=== PATIENT | female | born 1960 | race Caucasian/White ===

== ENCOUNTER → 2017-09-07 | Outpatient (CLI) | payer BC ==
--- NOTE | 2017-09-10 10:33 | MM ---
Reason for exam: screening (asymptomatic). Last mammogram was performed 1 year ago. History: Patient is postmenopausal. Physical Findings: A clinical breast exam by your physician is recommended on an annual basis and results should be correlated with mammographic findings. MG Screening Mammo w CAD Bilateral CC and MLO view(s) were taken. Prior study comparison: September 01, 2016, bilateral MG screening mammo w CAD. August 27, 2015, bilateral MG screening mammo w CAD. The breast tissue is heterogeneously dense. This may lower the sensitivity of mammography. No suspicious abnormality. No significant changes when compared with prior studies. ASSESSMENT: Negative, BI-RAD 1 RECOMMENDATION: Routine screening mammogram of both breasts in 1 year.
== END | disposition home or self-care (01) ==
LOC: RADMAMWWP 07:05
PROVIDERS: ATTEND Family Medicine
DX: Z12.31 Encounter for screening mammogram for malignant neoplasm of breast (principal)

== ENCOUNTER → 2018-09-27 | Outpatient (CLI) | payer BC ==
--- NOTE | 2018-09-30 12:15 | MM ---
Reason for exam: screening (asymptomatic). Last mammogram was performed 1 year and 1 month ago. History: Patient is postmenopausal. Physical Findings: A clinical breast exam by your physician is recommended on an annual basis and results should be correlated with mammographic findings. MG Screening Mammo w CAD Bilateral CC and MLO view(s) were taken. Prior study comparison: September 07, 2017, bilateral MG screening mammo w CAD. September 01, 2016, bilateral MG screening mammo w CAD. The breast tissue is heterogeneously dense. This may lower the sensitivity of mammography. Benign appearing bilateral calcifications. No significant changes when compared with prior studies. ASSESSMENT: Benign, BI-RAD 2 RECOMMENDATION: Routine screening mammogram of both breasts in 1 year.
== END ==
LOC: RADMAMWWP 06:57
PROVIDERS: ATTEND Family Medicine
DX: Z12.31 Encounter for screening mammogram for malignant neoplasm of breast (principal)
CPT/HCPCS: 77067

== ENCOUNTER → 2020-06-15 | Outpatient (CLI) | payer BC ==
--- NOTE | 2020-06-15 15:47 | BD ---
EXAMINATION TYPE: Axial Bone Density DATE OF EXAM: 06/15/2020 COMPARISON: NONE CLINICAL HISTORY: 59-year-old female postmenopausal screening Height: 5 FT 1 IN Weight: 123 FRAX RISK QUESTIONS: Alcohol (3 or more units per day): NO Family History (Parent hip fracture): NO Glucocorticoids (More than 3mos): NO (Ex: prednisone, prednisolone, methylprednisolone, dexamethasone, and hydrocortisone). History of Fracture in Adulthood: YES Secondary Osteoporosis: 1. Type 1 Diabetes: NO 2. Hyperthyroidism: NO 3. Menopause before 45: NO 4. Malnutrition: NO 5. Chronic liver disease: NO Rheumatoid Arthritis: NO Current Tobacco Use: YES RISK FACTORS HISTORY OF: Family History of Osteoporosis: NO Active: YES Diet low in dairy products/other sources of calcium: NO Postmenopausal woman: AGE 48 MEDICATIONS: Additional Medications: INSULIN, AMERSOL, SIMVASTATIN, LISINOPRIL Additional History: EXAM MEASUREMENTS: Bone mineral densitometry was performed using the [employer] System. Bone mineral density as measured about the Lumbar spine is: ----- L1-L4(G/cm2): 0.912 T Score Values are as follows: ----- L2: -2.9 ----- L3: -2.2 ----- L4: -1.6 ----- L1-L4: -2.2 Bone mineral density has: DECREASED -7.7 % since study of: 2015 Bone mineral density about the R hip (g/cm2): 0.647 Bone mineral density about the L hip (g/cm2): 0.811 T Score values are as follows: -----R Neck: -2.8 -----L Neck: -1.6 -----R Total: -3.4 -----L Total: -1.7 Bone mineral density has: DECREASED -20.8 % since study of: 2015 IMPRESSION: Osteoporosis (T Score less than -2.5). There is increased fracture risk and therapy is usually indicated based on age. Re-Screen 1-2 years. NOTE: T-SCORE=SD OF THE YOUNG ADULT MEAN.
--- NOTE | 2020-06-16 11:03 | MM ---
Reason for exam: screening (asymptomatic). Last mammogram was performed 1 year and 9 months ago. History: Patient is postmenopausal. Physical Findings: A clinical breast exam by your physician is recommended on an annual basis and results should be correlated with mammographic findings. MG Screening Mammo w CAD Bilateral CC and MLO view(s) were taken. Prior study comparison: September 27, 2018, bilateral MG screening mammo w CAD. September 07, 2017, bilateral MG screening mammo w CAD. The breast tissue is heterogeneously dense. This may lower the sensitivity of mammography. Finding: There are typically benign round calcifications in the upper outer quadrant of the left breast. There is no discrete abnormality. ASSESSMENT: Negative, BI-RAD 1 RECOMMENDATION: Routine screening mammogram of both breasts in 1 year.
== END | disposition home or self-care (01) ==
LOC: RADMAMWWP 07:59
PROVIDERS: ATTEND Family Medicine
DX: Z12.31 Encounter for screening mammogram for malignant neoplasm of breast (principal); Z13.820 Encounter for screening for osteoporosis; M81.0 Age-related osteoporosis without current pathological fracture
CPT/HCPCS: 77067; 77080

== ENCOUNTER → 2021-09-30 | Outpatient (CLI) | payer BC ==
--- NOTE | 2021-10-03 11:46 | MM ---
Reason for exam: screening (asymptomatic). Last mammogram was performed 1 year and 3 months ago. History: Patient is postmenopausal. Took hormonal contraceptives for 1 year. Physical Findings: A clinical breast exam by your physician is recommended on an annual basis and results should be correlated with mammographic findings. MG Screening Mammo w CAD Bilateral CC and MLO view(s) were taken. Prior study comparison: June 15, 2020, bilateral MG screening mammo w CAD. September 27, 2018, bilateral MG screening mammo w CAD. The breast tissue is heterogeneously dense. This may lower the sensitivity of mammography. There is no discrete abnormality. ASSESSMENT: Negative, BI-RAD 1 RECOMMENDATION: Routine screening mammogram of both breasts in 1 year.
== END | disposition home or self-care (01) ==
LOC: RADMAMWWP 07:30
PROVIDERS: ATTEND Family Medicine
DX: Z12.31 Encounter for screening mammogram for malignant neoplasm of breast (principal)
CPT/HCPCS: 77067

== ENCOUNTER 2022-01-17 08:13 | Day surgery (SDC) | payer BC ==
[2022-01-13 09:08] VITALS: BMI 23.8
[~2022-01-17 08:13] MED LIST: LIDOCAINE 1% (10MG/ML) FOR IV START INTRADERMA PRN
[2022-01-17 08:33] VITALS: RESP 16; TEMP 97.7
[2022-01-17 08:42] LABS: Glucose,Whole Blood 83 mg/dL (75-99)
[2022-01-17] MEDS: LACTATED RINGERS 1,000 ML IV SCH ×2 (08:42→08:55)
[2022-01-17] MEDS ORDERED: PROPOFOL 10 MG/ML 20 ML VIAL IV ONE (08:57)
--- NOTE | 2022-01-17 09:03 | P.GSHP ---
History of Present Illness H&P Date: 01/17/22 Chief Complaint: Colon cancer screening 61-year-old female here today for colonoscopy. Last colonoscopy 6 years ago. Patient with history of sigmoid colon polyp possible adenoma. No bowel complaints. No family history of colon cancer. Past Medical History Past Medical History: Diabetes Mellitus, Osteoarthritis (OA) Additional Past Medical History / Comment(s): STATES LISINOPRIL FOR KIDNEY PROTECTION. History of Any Multi-Drug Resistant Organisms: None Reported Past Surgical History: Hernia Repair, Orthopedic Surgery, Tubal Ligation Additional Past Surgical History / Comment(s): SURGERY FOR CRUSHED RIGHT LEG BELOW KNEE. Past Anesthesia/Blood Transfusion Reactions: No Reported Reaction Past Psychological History: No Psychological Hx Reported Smoking Status: Current every day smoker Past Alcohol Use History: Occasional Additional Past Alcohol Use History / Comment(s): SMOKES 1 PPD ., STARTED SMOKING AGE 17. Past Drug Use History: None Reported - Past Family History Father Sister(s) Family Medical History: Cancer Medications and Allergies Home Medications Medication Instructions Recorded Confirmed Type Simvastatin [Zocor] 20 mg PO HS 08/26/15 01/17/22 History lisinopriL [Zestril] 2.5 tab PO HS 08/26/15 01/17/22 History Acetaminophen [Tylenol Extra 1,000 mg PO DIRECTED PRN 01/13/22 01/17/22 History Strength] Alendronate Sodium [Fosamax] 70 mg PO WEEKLY 01/13/22 01/17/22 History Glimepiride [Amaryl] 1 mg PO DAILY 01/13/22 01/17/22 History Insulin Detemir (Levemir) [Levemir] 15 unit SQ BID 01/13/22 01/17/22 History Multivitamins, Thera [Multivitamin 1 tab PO DAILY 01/13/22 01/13/22 History (formulary)] Naproxen Sodium [Aleve] 220 mg PO DIRECTED PRN 01/13/22 01/13/22 History Trulicity (Unknown Dose) 1 dose SQ WEEKLY 01/13/22 01/17/22 History Allergies Allergy/AdvReac Type Severity Reaction Status Date / Time Penicillins Allergy Rash/Hives Verified 01/17/22 08:29 Surgical - Exam Vital Signs Temp Pulse Resp BP Pulse Ox 97.7 F 77 16 133/76 98 01/17/22 08:31 01/17/22 08:31 01/17/22 08:31 01/17/22 08:31 01/17/22 08:31 Physical exam: General: Well-developed, well-nourished HEENT: Normocephalic, sclerae nonicteric Abdomen: Nontender, nondistended Extremities: No edema Neuro: Alert and oriented Assessment and Plan (1) Colon cancer screening Narrative/Plan: Will proceed with colonoscopy at this time Current Visit: Yes Status: Acute Code(s): Z12.11 - ENCOUNTER FOR SCREENING FOR MALIGNANT NEOPLASM OF COLON SNOMED Code(s): 391083835
--- NOTE | 2022-01-17 09:22 | P.PCN ---
Date of Procedure: 01/17/22 Procedure(s) Performed: PREOPERATIVE DIAGNOSIS: Colon cancer screening, history of polyps POSTOPERATIVE DIAGNOSIS: Small sigmoid colon polyp PROCEDURE: Colonoscopy with biopsy ANESTHESIA: MAC SURGEON: Srinivas Dacosta M.D. SPECIMENS: Sigmoid colon polyp ENDOSCOPIC PROCEDURE: The patient was placed on the endoscopy table in the left decubitus position. The Olympus colonoscope was inserted into the anus and passed under direct visualization to the base of the cecum. The appendiceal orifice was visualized. From that point the scope was slowly withdrawn inspecting all surfaces carefully. There were no neoplastic inflammatory or polypoid lesions throughout the cecum, ascending, transverse, and descending colon. In the sigmoid colon there was a small polyp removed using the cold biopsy forceps. The remainder of the sigmoid and rectum was normal. There was no visible diverticulosis. Digital rectal examination was normal. The patient was taken to the recovery room in stable condition per anesthesia guidelines. RECOMMENDATIONS: Await biopsy results. Anticipate follow-up colonoscopy 5-7 years.
[2022-01-17 10:08] VITALS: BP 122/78; PULSE 72
== END 2022-01-17 10:16 | disposition home or self-care (01) ==
LOC: ORWHC2ENDO 08:13
PROVIDERS: ATTEND Surgery
DX: Z12.11 Encounter for screening for malignant neoplasm of colon (principal); Z86.010 Personal history of colon polyps; K63.5 Polyp of colon; E11.9 Type 2 diabetes mellitus without complications; M19.90 Unspecified osteoarthritis, unspecified site; E78.5 Hyperlipidemia, unspecified; Z98.890 Other specified postprocedural states; F17.210 Nicotine dependence, cigarettes, uncomplicated; Z80.9 Family history of malignant neoplasm, unspecified; Z79.899 Other long term (current) drug therapy; Z97.2 Presence of dental prosthetic device (complete) (partial); Z98.51 Tubal ligation status; Z79.83 Long term (current) use of bisphosphonates; Z79.4 Long term (current) use of insulin; Z88.0 Allergy status to penicillin
CPT/HCPCS: 88305; 45380; J2704

== ENCOUNTER → 2022-07-10 | Outpatient (CLI) | payer BC ==
--- NOTE | 2022-07-10 20:10 | BD ---
EXAMINATION TYPE: Axial Bone Density DATE OF EXAM: 07/10/2022 CLINICAL HISTORY: 61 year old Female. ICD-10 CODE: M81.0 OSTEOPOROSIS, Z87.310 HISTORY OF OSTEOPORO SIS Height: 61 Weight: 126.7 FRAX RISK QUESTIONS: Alcohol (3 or more units per day): no Family History (Parent hip fracture): no Glucocorticoids (More than 3mos): no (Ex: prednisone, prednisolone, methylprednisolone, dexamethasone, and hydrocortisone). History of Fracture in Adulthood: yes Secondary Osteoporosis: 1. Type 1 Diabetes: no 2. Hyperthyroidism: no 3. Menopause before 45: no 4. Malnutrition: no 5. Chronic liver disease: no Rheumatoid Arthritis: no Current Tobacco Use: yes RISK FACTORS HISTORY OF: Surgery to Spine/Hip(right/left)/Wrist (right/left): no Family History of Osteoporosis: no Active: no Diet low in dairy products/other sources of calcium: no Postmenopausal woman: yes Lost more than 2 inches in height since high school: no MEDICATIONS: diabetic meds Osteoporosis Medications: alendronate How Lon years Additional History: EXAM MEASUREMENTS: Bone mineral densitometry was performed using the [employer] System. Bone mineral density as measured about the Lumbar spine is: ----- L1-L4(G/cm2): 0.956 T Score Values are as follows: ----- L1: -2.3 ----- L2: -2.9 ----- L3: -1.6 ----- L4: -0.9 ----- L1-L4: -1.9 Bone mineral density has: decreased -3.3 % since study of: 09.01.2016 Bone mineral density about the R hip (g/cm2): 0.705 Bone mineral density about the L hip (g/cm2): 0.813 T Score values are as follows: -----R Neck: -2.4 -----L Neck: -1.6 -----R Total: -2.8 -----L Total: -1.8 Bone mineral density has: decreased -17.5 % since study of: 09.01.2016 FRAX%s: The graph provided illustrates a 20.6% chance for a major osteoporotic fx and a 6.3% chance f or the hips probability for fx in 10 years time. IMPRESSION: Osteoporosis (T Score less than -2.5). There is increased fracture risk and therapy is usually indicated based on age. Re-Screen 1-2 years. NOTE: T-SCORE=SD OF THE YOUNG ADULT MEAN.
== END | disposition home or self-care (01) ==
LOC: RADBDWWP 09:10
PROVIDERS: ATTEND Family Medicine
DX: M81.0 Age-related osteoporosis without current pathological fracture (principal); Z87.310 Personal history of (healed) osteoporosis fracture
CPT/HCPCS: 77080

== ENCOUNTER → 2022-10-27 | Outpatient (CLI) | payer BC ==
--- NOTE | 2022-10-30 08:42 | MM ---
Reason for Exam: Screening (asymptomatic). Last mammogram was performed 1 year(s) and 1 month(s) ago. Patient History: Menarche at age 13. First Full-Term at age 19. Postmenopausal. Patient used Hormonal Contraceptives for 1 year. Risk Values: Marnie 5 year model risk: 1.1%. NCI Lifetime model risk: 5.2%. Prior Study Comparison: 09/01/2016 Bilateral Screening Mammogram, [facility]. 09/07/2017 Bilateral Screening Mammogram, [facility]. 09/27/2018 Bilateral Screening Mammogram, [facility]. 06/15/2020 Bilateral Screening Mammogram, [facility]. 09/30/2021 Bilateral Screening Mammogram, [facility]. Tissue Density: The breast tissue is heterogeneously dense. This may lower the sensitivity of mammography. Findings: Analyzed By CAD. There is no suspicious group of microcalcifications or new suspicious mass in either breast. Overall Assessment: Negative, BI-RAD 1 Management: Screening Mammogram of both breasts in 1 year. A clinical breast exam by your physician is recommended on an annual basis and results should be correlated with mammographic findings. Electronically signed and approved by: Sesar Miguel M.D. Radiologis
== END | disposition home or self-care (01) ==
LOC: RADMAMWWP 10:04
PROVIDERS: ATTEND Family Medicine
DX: Z12.31 Encounter for screening mammogram for malignant neoplasm of breast (principal); Z78.0 Asymptomatic menopausal state
CPT/HCPCS: 77063; 77067

== ENCOUNTER → 2022-10-27 | Outpatient (CLI) | payer BC ==
--- NOTE | 2022-10-27 12:49 | XR ---
EXAMINATION TYPE: XR thoraco lumbar junction DATE OF EXAM: 10/27/2022 COMPARISON: NONE HISTORY: 61-year-old female M81.0 age related osteoporosis TECHNIQUE: 2 views FINDINGS: There is an S-shaped scoliotic curvature. Mild multilevel degenerative disc disease is present. Limit ed assessment due to patient body habitus, osteopenia, and the underlying curvature. There seems to b e some mild degenerative disc disease with endplate spondylosis upper lumbar spine. No evident verteb ral compression collapse at the thoracolumbar junction. IMPRESSION: Imaging centered at the thoracolumbar junction. S-shaped scoliosis. There appears to be mild degenera tive disc disease in the upper lumbar spine. Evaluation is limited due to osteopenia, scoliosis, and body habitus.
== END | disposition home or self-care (01) ==
LOC: RADXRMAIN 10:25
PROVIDERS: ATTEND Internal Medicine Endocrinology, Diabetes & Metabolism
DX: M81.0 Age-related osteoporosis without current pathological fracture (principal); M51.36 Other intervertebral disc degeneration, lumbar region
CPT/HCPCS: 72080

== ENCOUNTER → 2023-10-05 | Outpatient (CLI) | payer BC ==
--- NOTE | 2023-10-05 11:25 | BD ---
EXAMINATION TYPE: Axial Bone Density DATE OF EXAM: 10/05/2023 CLINICAL HISTORY: 62 years old Female. ICD-10 CODE: M81.0 OSTEOPOROSIS Height: 60.7 Weight: 109 FRAX RISK QUESTIONS: History of Fracture in Adulthood: yes Current Tobacco Use: yes RISK FACTORS HISTORY OF: hx of tib fib fx 3 yrs ago, Osteoporosis medication: yes, alendronate for about 4 yrs Postmenopausal woman: yes 50 yrs Hyperparathyroidism: no Adrenal Insufficiency: no MEDICATIONS: Osteoporosis Medications: yes, alendronate for about 4 yrs Additional Medications: diabetic, metformin, insulin, statin for cholesterol, vit d and calcium Additional History: diabetic, cholesterol,scoliosis, very thin EXAM MEASUREMENTS: Bone mineral densitometry was performed using the [employer] System. Bone mineral density as measured about the Lumbar spine is: ----- L1-L4(G/cm2): 0.757 T Score Values are as follows: ----- L1: -3.6 ----- L2: -4.2 ----- L3: -4.1 ----- L4: -2.1 ----- L1-L4: -3.5 Z Score Values are as follows: ----- L1: -1.7 ----- L2: -2.3 ----- L3: -2.2 ----- L4: -0.2 ----- L1-L4: -1.6 Bone mineral density has: Decreased -20.8% since study of: 07.10.2022 Bone mineral density about the R hip (g/cm2): 0.633 Bone mineral density about the L hip (g/cm2): 0.766 T Score values are as follows: -----R Neck: -2.2 -----L Neck: -1.9 -----R Total: -3.0 -----L Total: -1.9 Z Score values are as follows: -----R Neck: -0.5 -----L Neck: -0.2 -----R Total: -1.5 -----L Total: -0.5 Bone mineral density has: Decreased -2.5% since study of: 07.10.2022 FRAX%s: The graph provided illustrates a 17.8% chance for a major osteoporotic fx and a 5.1% chance f or the hips probability for fx in 10 years time. IMPRESSION: Osteoporosis (T Score less than -2.5). There is increased fracture risk and therapy is usually indicated based on age. Re-Screen 1-2 years. NOTE: T-SCORE=SD OF THE YOUNG ADULT MEAN.
== END | disposition home or self-care (01) ==
LOC: RADBDWWP 09:55
PROVIDERS: ATTEND Internal Medicine Endocrinology, Diabetes & Metabolism
DX: M81.0 Age-related osteoporosis without current pathological fracture (principal); M85.89 Other specified disorders of bone density and structure, multiple sites; Z78.0 Asymptomatic menopausal state
CPT/HCPCS: 77080

== ENCOUNTER → 2023-11-14 | Outpatient (CLI) | payer BC ==
--- NOTE | 2023-11-17 23:34 | MM ---
Reason for Exam: Screening (asymptomatic). Last screening mammogram was performed 12 month(s) ago. Patient History: Menarche at age 13. First Full-Term at age 19. Postmenopausal. Patient used Hormonal Contraceptives for 1 year. Risk Values: Marnie 5 year model risk: 1.1%. NCI Lifetime model risk: 5.0%. Prior Study Comparison: 06/15/2020 Bilateral Screening Mammogram, [facility]. 09/30/2021 Bilateral Screening Mammogram, [facility]. 10/27/2022 Bilateral MG 3D screening mammo w/cad, [facility]. Tissue Density: The breast tissue is heterogeneously dense. This may lower the sensitivity of mammography. Findings: Analyzed By CAD. Interval weight loss with increased breast density and decreased size of the breasts. There is no suspicious group of microcalcifications or new suspicious mass in either breast. Overall Assessment: Benign, BI-RAD 2 Management: Screening Mammogram of both breasts in 1 year. . Patient should continue monthly self-breast exams. A clinical breast exam by your physician is recommended on an annual basis. This exam should not preclude additional follow-up of suspicious palpable abnormalities. Note on Marnie scores and lifetime risk: 1. A Marnie score greater than 3% is considered moderate risk. If this is the case, consider specialist referral to assess eligibility for a risk reducing agent. 2. If overall lifetime risk for the development of breast cancer is 20% or higher, the patient may qualify for future screening with alternating mammogram and breast MRI. Electronically signed and approved by: Kassandra Cao M.D. Radiologist
--- NOTE | 2023-11-19 21:26 | CTL ---
EXAMINATION TYPE: CT Low Dose Lung DATE OF EXAM ORDERED: 11/14/2023 HISTORY: 62-year-old female Z87.891. Current smoker with 43 pack-year history. Lung cancer screening CT DLP: 46.[address] CTDI: 1.3 mGy Automated exposure control for dose reduction was used. SCREENING VISIT: Baseline COMPARISON: None TECHNIQUE: Low dose computed tomography scan was performed through the chest with coronal and sagitta l reconstructions. CT DIAGNOSTIC QUALITY: Satisfactory FINDINGS: Heart is normal size without pericardial effusion. LAD coronary artery calcifications are present. Portal and ectasia ascending aorta 3.6 cm. Conventional arch vessel branching anatomy. No thoracic lymphadenopathy by CT size criteria. There is a calcified granuloma at the left base. Approximately 3 calcified granulomas left midlung. No suspicious pulmonary nodules are identified. Mild emphysematous change. No consolidation or pleural effusion. Visualized upper abdomen shows no gross abnormality. Bones: Dextroconvex scoliosis. IMPRESSION: 1. LungRADS 2, benign. Evidence of prior granulomatous disease. 2. COPD with mild emphysema. 3. LAD coronary artery calcifications. CT LUNG RAD AND CT CHEST RECOMMENDATION: Lung-Rad 2 Benign Appearance or Behavior: Continue annual sc reening with LDCT in 12 months. S Modifier (other clinically significant findings): None
== END | disposition home or self-care (01) ==
LOC: RADMAMWWP 13:21
PROVIDERS: ATTEND Family Medicine
DX: Z12.31 Encounter for screening mammogram for malignant neoplasm of breast (principal); Z12.2 Encounter for screening for malignant neoplasm of respiratory organs; Z78.0 Asymptomatic menopausal state; J43.9 Emphysema, unspecified; J44.9 Chronic obstructive pulmonary disease, unspecified; I25.10 Atherosclerotic heart disease of native coronary artery without angina pectoris; F17.210 Nicotine dependence, cigarettes, uncomplicated
CPT/HCPCS: 71271; 77067

== ENCOUNTER → 2024-12-12 | Outpatient (CLI) | payer BC ==
--- NOTE | 2024-12-12 13:25 | MM ---
Reason for Exam: Screening (asymptomatic). Last mammogram was performed 1 year(s) and 1 month(s) ago. Patient History: Menarche at age 13. First Full-Term at age 19. Postmenopausal. Patient used Hormonal Contraceptives for 1 year. Risk Values: Marnie 5 year model risk: 1.2%. NCI Lifetime model risk: 4.7%. Prior Study Comparison: 09/30/2021 Bilateral Screening Mammogram, [facility]. 10/27/2022 Bilateral MG 3D screening mammo w/cad, [facility]. 11/14/2023 Bilateral MG screening mammo w CAD, [facility]. Tissue Density: The breasts are heterogeneously dense, which may obscure small masses. Findings: Analyzed By CAD. Benign-appearing bilateral vascular calcifications are redemonstrated. There is no suspicious group of microcalcifications or new suspicious mass in either breast. Overall Assessment: Negative, BI-RAD 1 Management: Screening Mammogram of both breasts in 1 year. Some advise bilateral breast ultrasound surveillance in patients with background dense tissue. Patient should continue monthly self-breast exams. A clinical breast exam by your physician is recommended on an annual basis. This exam should not preclude additional follow-up of suspicious palpable abnormalities. Note on Marnie scores and lifetime risk: 1. A Marnie score greater than 3% is considered moderate risk. If this is the case, consider specialist referral to assess eligibility for a risk reducing agent. 2. If overall lifetime risk for the development of breast cancer is 20% or higher, the patient may qualify for future screening with alternating mammogram and breast MRI. [facility], , 12/12/2024 1:22 PM. Electronically signed and approved by: Riley Ewing M.D.
--- NOTE | 2024-12-12 13:33 | CTL ---
EXAMINATION TYPE: CT Low Dose Lung DATE OF EXAM ORDERED: 12/12/2024 COMPARISON: CT Low Dose Lung 11/14/2023 CLINICAL INDICATION: Female, 64 years old with history of R60.0 EDEMA Z12.31 Z12.2 F17.210 NICOTINE D EPENDEN; PHH, personal tobacco use, Lung cancer screening, History of Smoking/tobacco use. TECHNIQUE: Low dose computed tomography scan was performed through the chest at 1 mm thick sections a nd reconstructed images in multiple planes at 1 mm and [address] DLP: [address] CTDI: 1.3 mGy Automated exposure control for dose reduction was used. CT DIAGNOSTIC QUALITY: Satisfactory FINDINGS: Nodules: Stable calcified granuloma within the left lung base. Stable scattered calcified granulomas. No new s uspicious pulmonary nodule. LUNGS: COPD: Severity: Mild Fibrosis: Severity: None Lymph nodes: None Other findings: None RIGHT PLEURAL SPACE: Effusion: None Calcification: None Thickening: None Pneumothorax: None LEFT PLEURAL SPACE: Effusion: None Calcification: None Thickening: None Pneumothorax: None HEART: Heart Size: Normal Coronary Calcification: Small Pericardial Effusion: None OTHER FINDINGS: Upper abdomen: None Bony thorax: Dextroconvex scoliosis. Supraclavicular region: None Other: None IMPRESSION: 1. Stable calcified granulomas. No new suspicious pulmonary nodule. 2. Mild COPD changes. CT LUNG RAD AND CT CHEST RECOMMENDATION: Lung-Rad 2 Benign Appearance or Behavior: Continue annual sc reening with LDCT in 12 months. S Modifier (other clinically significant findings): None [facility], , 12/12/2024 1:30 PM
== END | disposition home or self-care (01) ==
LOC: RADMAMWWP 12:27
PROVIDERS: ATTEND Family Medicine
DX: Z12.31 Encounter for screening mammogram for malignant neoplasm of breast (principal); Z12.2 Encounter for screening for malignant neoplasm of respiratory organs; F17.210 Nicotine dependence, cigarettes, uncomplicated; Z78.0 Asymptomatic menopausal state; R92.333 Mammographic heterogeneous density, bilateral breasts; J44.9 Chronic obstructive pulmonary disease, unspecified; J84.10 Pulmonary fibrosis, unspecified
CPT/HCPCS: 71271; 77067

== ENCOUNTER → 2025-02-27 | Outpatient (CLI) | payer BC ==
--- NOTE | 2025-02-27 09:55 | BD ---
EXAMINATION TYPE: Axial Bone Density DATE OF EXAM: 02/27/2025 CLINICAL HISTORY: 64 years old Female. ICD-10 CODE: E55.9 VITAMIN D DEFICIENCY, UNSPECIFIED , Additi onal History: Height: 5 ft 1/2 in Weight: 113 FRAX RISK QUESTIONS: Alcohol (3 or more units per day): no Family History (Parent hip fracture): no Glucocorticoids (More than 3mos): no (Ex: prednisone, prednisolone, methylprednisolone, dexamethasone, and hydrocortisone). History of Fracture in Adulthood: yes Secondary Osteoporosis: 1. Type 1 Diabetes: no 2. Hyperthyroidism: no 3. Menopause before 45: no 4. Malnutrition: no 5. Chronic liver disease: no Rheumatoid Arthritis: no Current Tobacco Use: yes RISK FACTORS HISTORY OF: Surgery to Spine/Hip(right/left)/Wrist (right/left): no MEDICATIONS: Thyroid Medications: none Osteoporosis Medications: yes Which medication: injection How Long: one year EXAM MEASUREMENTS: Bone mineral densitometry was performed using the [employer] System. Bone mineral density as measured about the Lumbar spine is: ----- L1-L4(G/cm2): 0.965 T Score Values are as follows: ----- L1: -2.2 ----- L2: -2.8 ----- L3: -1.5 ----- L4: -0.9 ----- L1-L4: -1.8 Z Score Values are as follows: ----- L1: -0.2 ----- L2: -0.8 ----- L3: 0.5 ----- L4: 1.0 ----- L1-L4: 0.2 Bone mineral density has: decreased -1.4 % since study of: 2022 Bone mineral density about the R hip (g/cm2): 0.695 Bone mineral density about the L hip (g/cm2): 0.814 T Score values are as follows: -----R Neck: -2.5 -----L Neck: -1.6 -----R Total: -3.0 -----L Total: -2.0 Z Score values are as follows: -----R Neck: -0.8 -----L Neck: 0.1 -----R Total: -1.5 -----L Total: -0.5 Bone mineral density has: decreased -0.7 % since study of: 2022 FRAX%s: The graph provided illustrates a 20.9 % chance for a major osteoporotic fx and a 7.1 % chance for the hips probability for fx in 10 years time. IMPRESSION: Osteoporosis (T Score less than -2.5). There is increased fracture risk and therapy is usually indicated based on age. Re-Screen 1-2 years. NOTE: T-SCORE=SD OF THE YOUNG ADULT MEAN. [facility], , 02/27/2025 9:53 AM
== END | disposition home or self-care (01) ==
LOC: RADBDWWP 07:55
PROVIDERS: ATTEND Internal Medicine Endocrinology, Diabetes & Metabolism
DX: M81.0 Age-related osteoporosis without current pathological fracture (principal); E86.0 Dehydration; K71.9 Toxic liver disease, unspecified; E83.52 Hypercalcemia; M85.89 Other specified disorders of bone density and structure, multiple sites
CPT/HCPCS: 77080